=== PATIENT | male | born 1950 ===

== ENCOUNTER 2018-05-12 11:23 | Outpatient (CLI) | payer OTHER ==
[~2018-05-12 11:23] MED LIST: ENTOCORT EC3 MG PO
== END 2018-05-12 12:00 | disposition home or self-care (01) ==
LOC: NUCLEAR 11:23
DX: I87.2 Venous insufficiency (chronic) (peripheral) (principal); I73.9 Peripheral vascular disease, unspecified; Z86.718 Personal history of other venous thrombosis and embolism